=== PATIENT | female | born 1970 ===

== ENCOUNTER 2020-11-28 11:49 | Observation (INO) ==
[2020-11-28] MEDS ORDERED: HYDROmorphone PCA 1 MG/ML Titrat per Protocol PCA SCH (12:00)
[2020-11-28] MEDS ORDERED: Clindamycin 900 MG/D5W BAG IVPB ONE (12:30)
[2020-11-28] MEDS ORDERED: oxyCODONE SR 10 mg TAB ONE (13:02)
[2020-11-28] MEDS ORDERED: Ondansetron 4 mg VIAL 2 MG/ML 2 ml VIAL ONE (13:03)
[2020-11-28] MEDS ORDERED: Lidocaine 1% VIAL 10 MG/ML VIAL ONE (13:34)
[2020-11-28] MEDS ORDERED: Iohexol 350 (CONTRAST) 200 ML MDV IV ONE (13:35)
[2020-11-28] MEDS ORDERED: Heparin 2 UNITS/ML 1000 mls 2,000 ML IV ONE (13:35)
[2020-11-28 13:49] LABS: ABS Eosinophils 0.1 10^3/ul (0-0.6); ABS Lymphocytes 1.3 10^3/ul (1.0-4.8); ABS Monocytes 0.3 10^3/ul (0-0.8); ABS Neutrophils 3.1 10^3/ul (1.5-7.7); Eosinophil % 2.3 %; Hematocrit 42 % (35-47); Hemoglobin 14.1 g/dL (12.0-16.0); Lymphocyte % 26.2 %; Mean Corpuscular HGB Conc 34 g/dL (31-36); Mean Corpuscular Hemoglobin 30 pg (27-31); Mean Corpuscular Volume 89 fL (80-97); Mean Platelet Volume 8.6 fL (7.4-10.4); Platelet Count 280 10^3/uL (150-450); Red Blood Count 4.71 10^6 /uL (3.70-4.87); Red Cell Distribution Width 15 % (10-15); White Blood Count 4.8 10^3/uL (3.5-10.8)
[2020-11-28 13:57] LABS: Activated Partial Thrombo Time 30.1 seconds (26.0-38.0); INR 0.94 (0.82-1.09)
[2020-11-28 14:00] LABS: Blood Urea Nitrogen 14 mg/dL (6-24); CO2 Carbon Dioxide 27 mmol/L (22-32); Calcium 9.8 mg/dL (8.6-10.3); Chloride 102 mmol/L (101-111); EGFR African American 106.7 (>60); EGFR Non-African American 88.2 (>60); Glucose 91 mg/dL (70-100); Sodium 137 mmol/L (135-145)
[2020-11-28] MEDS ORDERED: fentaNYL 250 mcg/5 ml 50 MCG/ML 5 ml VIAL (250 MCG) ONE (14:05)
[2020-11-28 14:06] LABS: HCG Pregnancy 0.83 mIU/mL
[2020-11-28] MEDS ORDERED: Midazolam 5 mg/5 ml VIAL 1 mg/ml 5 ml VIAL (5 mg) ONE (14:06)
[2020-11-28] MEDS ORDERED: nitroGLYCERIN DRIP 25,000 MCG/250 ML BTL ONE (14:06)
[2020-11-28 14:15] LABS: Anion Gap 8 mmol/L (2-11)
[2020-11-28] MEDS ORDERED: Prochlorperazine 5 mg/ml 2 ml VIAL (10 mg) ONE (15:20)
[2020-11-28] MEDS ORDERED: HYDROmorphone 1 MG/1 ML SYRINGE ONE (15:21)
[2020-11-28] MEDS: NS 0.9% 1000 ml BAG 1,000 ML IV SCH ×2 (20:15→23:31)
[2020-11-28] MEDS: Ondansetron 4 mg VIAL 2 MG/ML 2 ml VIAL IV SCH (22:28)
[2020-11-29] MEDS: Ondansetron 4 mg VIAL 2 MG/ML 2 ml VIAL IV SCH ×2 (04:33→08:10)
[2020-11-29 04:40] LABS: ABS Lymphocytes 0.6 10^3/ul (1.0-4.8); ABS Monocytes 0.3 10^3/ul (0-0.8); ABS Neutrophils 7.5 10^3/ul (1.5-7.7); Hematocrit 33 % (35-47); Hemoglobin 11.4 g/dL (12.0-16.0); Mean Corpuscular HGB Conc 35 g/dL (31-36); Mean Corpuscular Hemoglobin 30 pg (27-31); Mean Corpuscular Volume 88 fL (80-97); Mean Platelet Volume 7.9 fL (7.4-10.4); Platelet Count 238 10^3/uL (150-450); Red Blood Count 3.75 10^6 /uL (3.70-4.87); Red Cell Distribution Width 15 % (10-15); White Blood Count 8.4 10^3/uL (3.5-10.8)
[2020-11-29 04:56] LABS: Calcium 8.3 mg/dL (8.6-10.3); EGFR African American 157.4 (>60); EGFR Non-African American 130.1 (>60)
[2020-11-29 07:33] VITALS: BP 140/71
[2020-11-29] MEDS ORDERED: Scopolamine PATCH Remove NOTE PATCH OFF ONE (08:00)
[2020-11-29] MEDS ORDERED: HYDROcodone/ACETAMIN 5/325 mg TAB PO PRN (10:17)
[2020-11-29] MEDS ORDERED: Ketorolac 10 mg TAB (NF) PO SCH (11:00)
== END 2020-11-29 11:15 | disposition home or self-care (01) ==
LOC: CHICATH 11:49 → SSU 11:49
PROVIDERS: ADMIT Internal Medicine; ATTEND Radiology Diagnostic Radiology
PROC: ANG.UFE (2020-11-28 13:10)